=== PATIENT | male | born 1960 | race Caucasian/White ===

== ENCOUNTER 2018-08-26 18:48 | Emergency (ER) | payer BC ==
[~2018-08-26] VITALS: Ht 182.9 cm; Wt 95.0 kg
[2018-08-26 19:08] VITALS: BP_SYST 187
[2018-08-26] MEDS ORDERED: HYDR12.54 PO (19:12)
[2018-08-26] MEDS ORDERED: LISI2.5T47 PO (19:12)
[2018-08-26] MEDS ORDERED: AMPH10CA8 PO (19:14)
[2018-08-26] MEDS ORDERED: BACITRACIN ZINC OINT UDPKT TOP ONE (20:45)
[2018-08-26] MEDS ORDERED: IBUPROFEN 600MG TABLET PO ONE (20:45)
[2018-08-26] MEDS ORDERED: TETANUS, DIPHTHERIA, PERTUSSIS VAC/PF 0.5ML (>7YR OLD) IM ONE (20:45)
[2018-08-26 22:15] VITALS: BP_DIAS 146
== END 2018-08-26 22:16 | disposition home or self-care (01) ==
LOC: ER 18:48
DX: S60.212A Contusion of left wrist, initial encounter (principal); I10 Essential (primary) hypertension; Z98.890 Other specified postprocedural states; Z79.899 Other long term (current) drug therapy; V89.2XXA Person injured in unspecified motor-vehicle accident, traffic, initial encounter; Y93.89 Activity, other specified; Y92.89 Other specified places as the place of occurrence of the external cause; Y99.8 Other external cause status
CPT/HCPCS: 29125; 73090; 73110; 90471; 90715; 99283

== ENCOUNTER 2019-10-24 20:48 | Emergency (ER) | payer BC ==
[~2019-10-24] VITALS: Ht 182.9 cm; Wt 96.0 kg
[~2019-10-24 20:48] MED LIST: AMPH10CA8 PO; HYDR12.54 PO; LISI2.5T47 PO
[2019-10-24 21:29] LABS: BASOPHILS % 0.8 % (0.0-2.0); EOSINOPHILS % 3.1 % (0.0-5.0); HEMATOCRIT. 45.6 % (42.0-52.0); HEMOGLOBIN. 15.7 g/dL (14.0-18.0); LYMPHOCYTES % 27.2 % (20.0-50.0); MEAN CORPUSCULAR HEMOGLOBIN 30.9 pg (28.0-32.0); MEAN CORPUSCULAR VOLUME 89.8 fL (80.0-94.0); MEAN PLATELET VOLUME 7.6 fl (7.4-10.4); NEUTROPHILS % 59.9 % (40.0-76.0); PLATELET 221 x1000/uL (130-400); RED BLOOD CELL COUNT 5.08 mill/uL (4.7-6.1); RED CELL DISTRIBUTION WIDTH 13.8 % (11.6-14.6)
[2019-10-24 21:34] LABS: CHLORIDE 104 mEq/L (98-107)
[2019-10-24 21:56] VITALS: BP 142/94
== END 2019-10-24 23:31 | disposition home or self-care (01) ==
LOC: ER 20:48
DX: R00.0 Tachycardia, unspecified (principal); R00.2 Palpitations; I10 Essential (primary) hypertension; Z79.01 Long term (current) use of anticoagulants
CPT/HCPCS: 36415; 71045; 80053; 83880; 84484; 85025; 93005; 99285